=== PATIENT | female | born 1980 | race Caucasian/White ===

== ENCOUNTER 2016-08-09 18:43 | Observation (INO) ==
--- NOTE | 2016-08-09 19:18 | OB/GYN Progress Note ---
Date of Encounter: 08/09/16 Time of Encounter: 19:10 - Assessment and Plan (1) and not yet delivered in third trimester Current Visit: Yes Status: Acute (2) 30 weeks gestation of Current Visit: Yes Status: Acute (3) Abdominal trauma Current Visit: Yes Status: Acute We will order coags with a [place] and we will observe for contractions and decelerations. If after a period of time we see nothing on the monitor and labs were all normal we will discharge home Qualifiers: Encounter type: initial encounter Qualified Code(s): S39.91XA - Unspecified injury of abdomen, initial encounter Subjective - Subjective Interval history: She is a 36-year-old 3 para 2 at 30-0/7 weeks who presented to labor and delivery with complaint of abdominal trauma. Patient states she tripped on her pants leg: Down a couple steps landing on her hands knees and abdomen all at the same time. Patient states that she has had no cramping or bleeding was concerned and called we had the patient come in for evaluation. Patient states that she is not hurting anywhere and has had no bleeding or cramping. Did inform the patient we do need to observe her for a period of time to make sure we do not see any issues with the baby in order some blood work to make sure that there was no separation of the placenta. Patient is O+ and today was diagnosed as being a gestational diabetic. Patient failed both her 1 hour and 2 hours with called and an Accu-Chek machine for her to start doing Accu-Cheks today she has not been able to pick them up yet. Objective - Exam FHR: category 1 FHR comments: heart tones 140s reassuring no decelerations noted no contractions or irritability noted Auscultation: bilateral: normal Abdomen: Present: normal appearance, soft, gravid Uterus: Present: firm
[2016-08-09 19:32] LABS: INR 1.1; Prothrombin Time 11.4 Seconds (9.4-12.1)
[2016-08-09 19:35] LABS: Activated Partial Thrombo Time 26.2 Seconds (26.0-36.0)
[2016-08-09 21:23] LABS: Basophils % 0.3 %; Eosinophils # 0.2 K/mcL (0.0-0.6); Eosinophils % 1.5 %; Hematocrit 36.6 % (35.3-44.9); Hemoglobin 12.8 g/dL (11.5-15.4); Immature Granulocytes % 1.5 % (0-4); Lymphocytes # 1.9 K/mcL (0.6-4.6); Lymphocytes % 17.2 %; Mean Corpuscular Hemoglobin 32.7 pg (28.0-33.3); Mean Corpuscular Volume 93.6 fL (83.0-100.0); Mean Platelet Volume 11.4 fL (9.4-12.4); Monocytes # 0.9 K/mcL (0.0-1.3); Monocytes % 8.5 %; Neutrophils # 7.7 K/mcL (1.6-8.9); Platelet Count 223 K/mcL (140-400); Red Blood Count 3.91 M/mcL (3.82-4.97); Red Cell Distribution Width 13.2 % (11.5-14.5)
[2016-08-09 22:29] LABS: Kleihauer-Betke-Fet Hgb Qnt 0 mL FMH (0-0)
== END 2016-08-09 22:49 | disposition home or self-care (01) ==
LOC: 1NENULAB
PROVIDERS: ADMIT Obstetrics & Gynecology; ATTEND Obstetrics & Gynecology

== ENCOUNTER 2016-10-11 13:03 | Observation (INO) ==
--- NOTE | 2016-10-11 08:57 | OB/GYN History & Physical ---
Date of Encounter: 10/11/16 Time of Encounter: 08:50 Assessment and Plan (1) 39 weeks gestation of Current visit: Yes Status: Acute (2) Gestational diabetes, diet controlled Current visit: Yes Status: Acute Qualifiers: Trimester: third trimester Qualified Code(s): O24.410 - Gestational diabetes mellitus in , diet controlled (3) Prolonged rupture of membranes, greater than 24 hours, delivered Current visit: Yes Status: Acute (4) Active labor at term Current visit: Yes Status: Acute (5) and not yet delivered in third trimester Current visit: No Status: Acute History of Present Illness HPI: Ms. Breen is a 36 year old female 3 para 2 at 39-0/7 weeks who presented to labor and delivery complaining of contractions every 2 minutes. Patient states that she started leaking approximate 9:00 yesterday morning but was not aly so did not call. Patient states approximately one hour ago she started getting very uncomfortable. On arrival to labor and delivery patient is noted be complete and +2 station. She was GBS negative she is a gestational diabetic diet controlled Past Med Surg Social Fam HX - Past Medical History Medical history: no medical history, diabetes (Gestational) Psychiatric history: no psych history - Past Surgical History Surgical History: no surgical history - Social History Smoking Status: Never smoker Smokeless Tobacco Status: No Alcohol use: none Drug use: none Occupational status: employed Current living situation: Home - Independent Activity Level: Independent ambulation Recent Out of Country Travel Within the Last 8 Weeks: No Exposure or Possible Exposure to Illness During Travel: No - Family History Mother Adopted: No Family Member Ethnicity: Non- Living Status: Still Living Hx Family Cardiac Disorders: Yes (htn) Hx Family Respiratory Disorders: No Hx Family Cancer: No Hx Family GI Disorders: No Hx Family Endocrine Disorder: No Hx Family Neuromuscular Disorders: No Hx Family Neurologic Disorders: No Hx Family HEENT Disorders: No Hx Family Autoimmune Disorders: No - Additional Family History Additional family history: Family history noncontributory Obstetrical History - Pregnancies : 3 Para: 2 Term: 2 : 0 Ab's: 0 Livin Medications and Allergies Caplet 1 tab PO DAILY 08/09/16 [History] Allergies No Known Allergies Allergy (Verified 08/09/16 19:29) Review of System OB All systems PM: reviewed and no additional remarkable complaints except as stated Exam - Constitutional Constitutional: well developed, well nourished, average body habitus, moderate distress - HEENT HEENT: PERRL - Neck Neck exam: full ROM - Lungs Respiratory exam: CTAB - Cardiovascular Cardiovascular exam: RRR - Abdomen Abdomen: Present: bowel sounds normal - Cervix Dilation: 10 Effacement: 100 Station: +2 - Uterus Uterus exam: Present: enlarged - Comments Comments: No membranes palpable at this time Results All other labs normal.
[2016-10-11 09:13] LABS: Basophils % 0.2 %; Eosinophils % 0.3 %; Hematocrit 41.4 % (35.3-44.9); Hemoglobin 14.1 g/dL (11.5-15.4); Immature Granulocytes % 0.6 % (0-4); Lymphocytes # 1.2 K/mcL (0.6-4.6); Lymphocytes % 9.6 %; Mean Corpuscular HGB Conc 34.1 g/dL (31.6-35.5); Mean Corpuscular Hemoglobin 31.9 pg (28.0-33.3); Mean Corpuscular Volume 93.7 fL (83.0-100.0); Monocytes % 8.3 %; Neutrophils # 10.2 K/mcL (1.6-8.9); Platelet Count 191 K/mcL (140-400); Red Blood Count 4.42 M/mcL (3.82-4.97); Red Cell Distribution Width 13.1 % (11.5-14.5)
--- NOTE | 2016-10-11 09:53 | Anesthesia Evaluation PreOp ---
Date of Encounter: 10/11/16 Time of Encounter: 09:25 - Past History Planned Operation: Labor Epidural Cardiac History: Denies any Significant Hx Pulmonary History: Denies Any Significant HX ORNAMENT MAKER HAND History: Denies Any Significant HX Other Medical History: Other (Gestational Diabetes) Anesthesia History: No Prior Anesthetic Complications, Past Anesthesia : Yes Alcohol Use: none Drug use: none Medications and Allergies Caplet 1 tab PO DAILY 08/09/16 [History] Metformin HCl [Metformin HCl ER] 1,000 mg PO DAILY 10/11/16 [History] Allergies No Known Allergies Allergy (Verified 10/11/16 09:28) - Meds/Allergy Pre-op Review Medications Reviewed: Yes Allergies Reviewed: Yes Beta Blockers on Current Med List: No Anesthesia Results - Labs 10/11/16 09:00 Anesthesia Exam 134/92, 86, 98%, 20 Height: 1.57m Weight: 83.6kg NPO (# of Hours): >4 Solids Pain Scale: 9 Pain Scale Used: Numeric (1 - 10) - HEENT Pupil (Motor): Pupils equal Mallampati: II Teeth: Normal Oral Opening: Greater than 3 - ORNAMENT MAKER HAND LOC: Oriented ORNAMENT MAKER HAND Motor: Normal RUE, Normal LUE, Normal RLE, Normal LLE, Normal Face ORNAMENT MAKER HAND Sensory: Normal: RUE, LUE, RLE, LLE, Face - Cardiac Rhythm: Regular Murmur: None JVD: No Carotid Bruit: No - Pulmonary Breath Sounds: bilateral Clear Respiratory Effort: Symmetrical Anesthesia Assess/Plan ASA Score: 2 Modified [place] Scale for Level of Consciousness: Cooperative, oriented, and tranquil Anesthetic Plan: Regional Monitoring Plan: Standard Monitors Recovery Plan: Other
--- NOTE | 2016-10-11 09:56 | Anesthesia Procedures ---
Date of Encounter: 10/11/16 Time of Encounter: 09:30 Procedures: Anesthesia - Epidural/Spinal Patient ID/Chart reviewed: Yes Patient examined: Yes OB Eval: Gestational age: 39 OB Eval: : 3 OB Eval: Hx Para: 2 OB Eval: Dilated at (cm): 8 OB Eval: Contractions: Non-stressed pattern Consent Obtained: Yes Supplemental Oxygen: None/Room Air Site Prep: Aseptic Technique, Sterile prep and drape, 0.5% Chlorhexidine/Alcohol Patient position: upright Local Anesthetic: Lidocaine 1% Amount of Local Anesthetic used: 3 Touhy Needle Gauge: 18 Touhy Needle Depth (cm): 7 Catheter Depth at Skin (cm): 12 Test Dose (1.5% Lido + Epi): Volume given (mls): 4 Test Dose Result: Negative Loading Dose: Fentanyl (mcg): 100 Loading Dose: Other: Ropivacaine 0.2% 8mL Loading Dose Administered: Thru Catheter Infusion Med: 0.125% Bupivacaine w/ 2 mcg/ml Fentanyl Infusion Rate (mls/hr): 14 (Bolus 4mL q15min; max 3/hr) Catheter Secured in Place: Tegaderm, Tape Interspace Used: L3-L4 Loss of Resistance (SAYRA): Yes Blood: No CSF: No Paresthesia: No Procedure: x1 attempt. Patient tolerated well and reported increased comfort within 2 contractions. Vitals + FHT's: VSS and FHR stable throughout. See nursing documentation.
--- NOTE | 2016-10-11 11:46 | OB/GYN Procedure Note ---
Delivery - Delivery Date: 10/11/16 Provider: Fuad Schwartz Intrapartum events: precipitous labor- <3hr, other(please specify) (Prolonged rupture of membranes) Delivery induction: none Delivery monitor: external FHT, external uterine Anesthesia: epidural Estimated Blood Loss: 100 - (s) Infant A Infant Delivery Date: 10/11/16 Delivery Time: 11:23 Presentation: vertex Position: JESSY Route of delivery: Gender: Female Viability: Viable Pounds: 7 Ounces: 5 Weight Gram: 3.325 kg at 1 minute: 8 at 5 mins: 9 Shoulder Dystocia: not encountered Specimens collected: cord blood Placenta: spontaneous Cord: nuchal cord, 3 umbilical vessels, nuchal reduced - Repair Episiotomy: none Laceration Description: Perineal - 1st Degree - Complications Delivery complications: none Delivery comments: Patient is a 36-year-old 3 para 2 at 39-0/7 weeks who presented to labor and delivery complaining of contractions every 2 minutes. Patient states she is ruptured yesterday but was not aly did not bother calling. She states approximately 8 AM this morning she became very uncomfortable. Upon arrival to labor and delivery patient was a good 8 cm. They cannot feel any membranes at this time and we did get the patient epidural. Patient progressed to 9 cm but did not seem to be progressing. She was examined and was noted to have some membranes still present she was ruptured at this time with clear fluid and she went to anterior lip. The patient was wanted time and she was able to try to the cervix. Patient pushed one additional time and delivered a viable female in left occiput anterior presentation at 11:23 AM. There was a nuchal cord 1 loose and reduced was no meconium the infant was bulb suctioned on the abdomen. Apgars were 8 at 1 minute, 9 at 5 minutes, infant weight was 7 lbs. 5 oz. Placenta was then delivered spontaneously with a three- vessel cord, art education professor at [employer], assistant professor of spanish Monty Toney OMS3, anesthesia epidural, estimated blood loss 100 mL. Patient had a first-degree perineal laceration repaired with 3-0 Vicryl in usual fashion. Cervix and vagina was visualized intact. Patient tolerated the delivery well she will be observed before being taken floor. - Disposition Mom disposition: stable in LDR [place] disposition: stable in LDR
[~2016-10-11 13:03] MED LIST: *HR* FentaNYL (PF) 100 MCG/2 ML VIAL EP ONE; *HR* FentaNYL (PF) 100 MCG/2 ML VIAL ONE; *HR* Ropivacaine/PF 0.2% 10 ML AMPUL EP ONE; *HR* Ropivacaine/PF 0.2% 10 ML AMPUL ONE; Bupivacaine-MPF 0.25% 10 ML VIAL ONE; EPHEDrine 50 MG/ML VIAL IVP PRN; Epidural Premix (fent/bupiv) 110 ML EP ONE; Epidural Premix (fent/bupiv) 110 ML EP SCH; Famotidine 20 MG/2 ML VIAL IVP PRN; Ondansetron 4 MG/2 ML VIAL IVP PRN; Oxytocin 20 units/ LR 1000 mL 20 UNIT/1,000 ML BAG IVC ONE; Penicillin G Potassium 5,000,000 UNIT in D5% in Water (Mini-Bag+) 100 ML IVPB ONE; Ringers Solution, Lactated 1,000 ML IVC SCH; Ringers Solution, Lactated 500 ML IVC ONE
[2016-10-11] MEDS ORDERED: Measles/Mumps/Rubella Vacc 0.5 ML VIAL SQ PRN (13:04)
[2016-10-11] MEDS ORDERED: Oxytocin 20 units/ LR 1000 mL 20 UNIT/1,000 ML BAG IV SCH (13:04)
[2016-10-11] MEDS ORDERED: Oxytocin 20 units/ LR 1000 mL 20 UNIT/1,000 ML BAG IVC ONE (13:04)
[2016-10-11] MEDS: Acetaminophen 325 MG TABLET PO PRN (20:04)
[2016-10-12 05:39] LABS: Basophils % 0.2 %; Eosinophils # 0.1 K/mcL (0.0-0.6); Eosinophils % 0.6 %; Hematocrit 36.1 % (35.3-44.9); Immature Granulocytes % 0.8 % (0-4); Lymphocytes # 1.9 K/mcL (0.6-4.6); Lymphocytes % 14.8 %; Mean Corpuscular HGB Conc 34.3 g/dL (31.6-35.5); Mean Corpuscular Hemoglobin 32.4 pg (28.0-33.3); Mean Corpuscular Volume 94.3 fL (83.0-100.0); Mean Platelet Volume 11.9 fL (9.4-12.4); Monocytes # 1.1 K/mcL (0.0-1.3); Monocytes % 8.8 %; Neutrophils # 9.6 K/mcL (1.6-8.9); Platelet Count 171 K/mcL (140-400); Red Blood Count 3.83 M/mcL (3.82-4.97); Red Cell Distribution Width 13.3 % (11.5-14.5); Segmented Neutrophils % 74.8 %
[2016-10-12 05:47] LABS: Hemoglobin 12.4 g/dL (11.5-15.4)
--- NOTE | 2016-10-12 07:28 | Discharge Summary ---
Date of Encounter: 10/12/16 Time of Encounter: 07:24 - Discharge Diagnosis (1) Vaginal delivery Priority: Primary Status: Acute Comments: Pt states feels good. infant breast feeding. Desires discharge today. - Discharge Medications Prescriptions: Docusate [Colace] 100 mg PO BID #60 capsule Home Medications: Caplet 1 tab PO DAILY 08/09/16 [History] Acetaminophen [Tylenol] 650 mg PO Q6HR PRN #0 tablet 10/12/16 [Rx] Docusate [Colace] 100 mg PO BID #60 capsule 10/12/16 [Rx] Ibuprofen [Motrin] 600 mg PO Q6HR PRN #60 tab 10/12/16 [Rx] Allergies/Adverse Reactions: Allergies No Known Allergies Allergy (Verified 10/11/16 09:28) Data Procedures and tests throughout hospitalization: Laboratory Tests 10/11/16 10/11/16 10/11/16 09:00 15:46 19:53 WBC 12.6 H RBC 4.42 Hgb 14.1 Hct 41.4 MCV 93.7 MCH 31.9 MCHC 34.1 RDW 13.1 Plt Count 191 MPV 12.0 Immature Gran % 0.6 Seg Neutrophils % 81.0 Lymphocytes % 9.6 Monocytes % 8.3 Eosinophils % 0.3 Basophils % 0.2 Neutrophils # 10.2 H Lymphocytes # 1.2 Monocytes # 1.0 Eosinophils # 0.0 Basophils # 0.0 POC Glucose 146 H 104 H 10/12/16 05:23 WBC 12.8 H RBC 3.83 Hgb 12.4 D Hct 36.1 MCV 94.3 MCH 32.4 MCHC 34.3 RDW 13.3 Plt Count 171 MPV 11.9 Immature Gran % 0.8 Seg Neutrophils % 74.8 Lymphocytes % 14.8 Monocytes % 8.8 Eosinophils % 0.6 Basophils % 0.2 Neutrophils # 9.6 H Lymphocytes # 1.9 Monocytes # 1.1 Eosinophils # 0.1 Basophils # 0.0 POC Glucose Labs on day of discharge: Labs from last 24 hours 10/12/16 10/11/16 10/11/16 05:23 19:53 15:46 WBC 12.8 H RBC 3.83 Hgb 12.4 D Hct 36.1 MCV 94.3 MCH 32.4 MCHC 34.3 RDW 13.3 Plt Count 171 MPV 11.9 Immature Gran % 0.8 Seg Neutrophils % 74.8 Lymphocytes % 14.8 Monocytes % 8.8 Eosinophils % 0.6 Basophils % 0.2 Neutrophils # 9.6 H Lymphocytes # 1.9 Monocytes # 1.1 Eosinophils # 0.1 Basophils # 0.0 POC Glucose 104 H 146 H 10/11/16 09:00 WBC 12.6 H RBC 4.42 Hgb 14.1 Hct 41.4 MCV 93.7 MCH 31.9 MCHC 34.1 RDW 13.1 Plt Count 191 MPV 12.0 Immature Gran % 0.6 Seg Neutrophils % 81.0 Lymphocytes % 9.6 Monocytes % 8.3 Eosinophils % 0.3 Basophils % 0.2 Neutrophils # 10.2 H Lymphocytes # 1.2 Monocytes # 1.0 Eosinophils # 0.0 Basophils # 0.0 POC Glucose Date of admission: 10/11/16 08:39 Primary care physician: BRIA DOYLE Consults: 10/11/16 13:04 Consult to Logging Specialist [CONS] Routine Comment: Vaginal delivery, consult needed Discharging clinician: Armida Red Anticipated date of discharge: 10/12/16 - Patient Status Disposition: Home, Self-Care Condition: Good Functional capacity at discharge: independent ambulation Overall status at discharge: patient is back to baseline - Discharge Instructions Follow Up With: Fuad Schwartz DO [Partnered Physician] - (November 11, 2016 @ 11:00 am) YANIRA,PCP [Primary Care Provider] - - Diet and Activity Activity: resume usual activities as tolerated Diet: regular diet Hospital Course Reason for admission: active labor Delivery: Episiotomy: none Laceration: 1st degree Other procedures: none complications: phlebitis Discharge diagnosis: IUP at term delivered [place] baby: female Hospital course: elivery - Delivery Date: 10/11/16 Provider: Fuad Schwartz Intrapartum events: precipitous labor- <3hr, other(please specify) (Prolonged rupture of membranes) Delivery induction: none Delivery monitor: external FHT, external uterine Anesthesia: epidural Estimated Blood Loss: 100 - Infant (s) Infant A Delivery Date: 10/11/16 Infant Delivery Time: 11:23 Presentation: vertex Position: JESSY Route of delivery: Gender: Female Viability: Viable Pounds: 7 Ounces: 5 Weight Gram: 3.325 kg at 1 minute: 8 at 5 mins: 9 Shoulder Dystocia: not encountered Specimens collected: cord blood Placenta: spontaneous Cord: nuchal cord, 3 umbilical vessels, nuchal reduced - Repair Episiotomy: none Laceration Description: Perineal - 1st Degree - Complications Delivery complications: none Delivery comments: Patient is a 36-year-old 3 para 2 at 39-0/7 weeks who presented to labor and delivery complaining of contractions every 2 minutes. Patient states she is ruptured yesterday but was not aly did not bother calling. She states approximately 8 AM this morning she became very uncomfortable. Upon arrival to labor and delivery patient was a good 8 cm. They cannot feel any membranes at this time and we did get the patient epidural. Patient progressed to 9 cm but did not seem to be progressing. She was examined and was noted to have some membranes still present she was ruptured at this time with clear fluid and she went to anterior lip. The patient was wanted time and she was able to try to the cervix. Patient pushed one additional time and delivered a viable female infant in left occiput anterior presentation at 11:23 AM. There was a nuchal cord 1 loose and reduced was no meconium the infant was bulb suctioned on the abdomen. Apgars were 8 at 1 minute, 9 at 5 minutes, infant weight was 7 lbs. 5 oz. Placenta was then delivered spontaneously with a three- vessel cord, customer success intern at [employer], commissary assistant Darium Feng OMS3, anesthesia epidural, estimated blood loss 100 mL. Patient had a first-degree perineal laceration repaired with 3-0 Vicryl in usual fashion. Cervix and vagina was visualized intact. Patient tolerated the delivery well she will be observed before being taken floor. - Disposition Mom disposition: stable in . Appropriate for discharge Time Attestation: Total time spent providing and/or coordinating discharge services: Time Spent: Less than 30 minutes Exam - Constitutional Vitals: Temp Pulse Resp BP Pulse Ox 97.7 F 97 16 114/81 97 10/12/16 03:44 10/12/16 03:44 10/12/16 03:44 10/12/16 03:44 10/12/16 03:44 General appearance IM: A&O X 3, no acute distress - Respiratory Respiratory exam: Present: CTAB - Cardiovascular Cardiovascular exam IM: Present: RRR, +S1, +S2 - GI/Abdominal GI/Abdominal exam IM: normal bowel sounds, soft - Uterine Tone: Firm Uterus Position: At Umbilicus - Extremities Exam Extremities exam IM: Present: normal capillary refill, normal inspection - Neurological Exam Neurological exam: normal gait, oriented X3 - Psychiatric Additional comments: reports good mood.
[2016-10-12] MEDS ORDERED: Prenatal Vit/FA 1 EACH TABLET PO SCH (09:00)
[2016-10-12 09:49] VITALS: BP 119/67
[2016-10-12] MEDS: Acetaminophen 325 MG TABLET PO PRN (09:51)
== END 2016-10-12 12:27 | disposition home or self-care (01) ==
LOC: 1NENULAB → 1NENUOBS 13:03
PROVIDERS: ADMIT Obstetrics & Gynecology; ATTEND Obstetrics & Gynecology